=== PATIENT | male | born 1990 | race Hispanic/Latino ===

== ENCOUNTER 2025-02-07 12:40 | Emergency (ER) | payer SELFPAY ==
[2025-02-07] MEDS ORDERED: ONDANSETRON 4 MG/2 ML VIAL ONE (13:00)
[2025-02-07] MEDS ORDERED: PANTOPRAZOLE 40 MG INJ ONE (13:00)
[2025-02-07] MEDS ORDERED: NA CHLORIDE 0.9% 250 ML ONE (13:01)
[2025-02-07] MEDS ORDERED: NA CHLORIDE 0.9% 1,000 ML ONE (13:01)
[2025-02-07] MEDS ORDERED: FENTANYL CITR 100 MCG/2 ML ONE ×2 (13:26→15:21)
[2025-02-07 13:34] LABS: Absolute Eosinophils 0.1 K/uL (0-0.5); Absolute Lymphocytes (CBC) 0.6 K/uL (0.7-4.9); Absolute Monocytes 0.6 K/uL (0.1-1.3); Absolute Neutrophil 5.8 K/uL (1.8-8.0); Basophils % 0.2 % (0-1.3); Eosinophils % 1.3 % (0-4.4); Hematocrit 28.2 % (39.6-49.0); Hemoglobin 9.7 g/dL (13.6-17.9); Lymphocytes % 8.6 % (15.3-44.8); MCHC 34.3 g/dL (32.0-36.0); MCV 78.7 fL (80-100); Monocytes % 8.1 % (3.3-12.3); Neutrophils % 81.8 % (41.7-73.7); Platelets 181 thou/uL (152-406); RBC Red Blood Cell Count 3.59 M/uL (4.33-5.43); Red Cell Distribution Width 20.8 % (12.1-15.2)
[2025-02-07 13:45] LABS: Albumin 3.1 g/dL (3.4-5.0); Anion Gap 11.2 mEq/L (5.0-15.0); Bilirubin Total 0.2 mg/dL (0.2-1.0); Globulin 3.1 g/dL (2.3-3.5); Potassium 4.2 mEq/L (3.5-5.1); Protein, Total 6.2 g/dL (6.4-8.2)
[2025-02-07 15:17] LABS: Blood Morphology Comment NOT SEEN (NOT SEEN); Platelet Estimate ADEQ; White Blood Cell Scan OK (OK)
[2025-02-07] MEDS ORDERED: INSULIN REGULAR (HUMAN) 100 UNIT/ML ONE (15:22)
[2025-02-07 15:58] LABS: Hematocrit 27.6 % (39.6-49.0); Hemoglobin 9.6 g/dL (13.6-17.9)
--- NOTE | 2025-02-07 16:11 | RAD REPORT ---
EXAMINATION: CT Abdomen Pelvis Wo Contrast CLINICAL INDICATION: Male, 35 years old. ABD PAIN TECHNIQUE: CT abdomen and pelvis was performed, without IV contrast, as per department protocol. Axia l, sagittal and coronal reconstructions were obtained. One or more of the following dose reduction techniques were used: Automated exposure control, adjustment of the mA and kV according to the patien t size, and iterative reconstruction. Unless otherwise specified, incidental findings do not require dedicated imaging follow-up. COMPARISON: No prior exam. FINDINGS: The lack of intravenous contrast limits the sensitivity of this exam for evaluation of solid visceral organs, vascular structures, and retroperitoneum. Motion artifact also limits evaluation. LOWER CHEST: The visualized lung bases are clear. LIVER: Normal in size and contour. No focal lesion. BILIARY SYSTEM: Status post cholecystectomy. SPLEEN: Normal size. No focal lesion. PANCREAS: No mass, ductal dilation, or evelyn-pancreatic fluid. ADRENALS: Normal; no mass. KIDNEYS AND URETERS: Normal size and contour. No hydronephrosis. URINARY BLADDER: Normal contour. GASTROINTESTINAL TRACT: No evidence of bowel obstruction, significant free fluid, free air or abscess . APPENDIX: Normal appendix. LYMPH NODES: No lymphadenopathy. MUSCULOSKELETAL: No acute or suspicious osseous abnormality. ADDITIONAL FINDINGS: IVC filter in place. IMPRESSION: No acute or concerning abnormalities in the abdomen or pelvis, with evaluation limited by motion and lack of IV contrast.
--- NOTE | 2025-02-07 16:24 | EDPHYS ---
Physician Documentation [facility] Name: Seth Cruz Age: 35 yrs Sex: Male : 1990 Arrival Date: 02/07/2025 Time: 12:40 Bed 13 Private MD: ED Physician Dmitry Sims HPI: 02/07 13:47 This 35 yrs old Male presents to ER via EMS with complaints of Abdominal Pain, kb Nausea/Vomiting. 13:47 Pt is a 35 year old male who presents for upper abd pain and hematemesis that started kb this morning. Reports he has had 4-5 episodes of vomiting bright red blood. Reports history of GERD and ulcers that have had to be clipped and cauterized in the past. . Historical: - Allergies: 12:45 Morphine; db 12:45 NSAIDS; db - PMHx: 17:24 Diabetes mellitus; db - Immunization history:: Adult Immunizations unknown. - Infectious Disease History:: Denies. - Social history:: Smoking status: Patient denies any tobacco usage or history of. Patient uses alcohol. ROS: 13:47 Constitutional: As per HPI kb Exam: 13:47 Constitutional: This is a well developed, well nourished patient who is awake, alert, kb and in no acute distress. Head/Face: Normocephalic, atraumatic. ENT: Moist Mucous membranes Cardiovascular: Regular rate Respiratory: Respirations even and unlabored. No increased work of breathing. Talking in full sentences Skin: Warm, dry with normal turgor. Normal color. MS/ Extremity: Pulses equal, no cyanosis. Neurovascular intact. Full, normal range of motion. Neuro: Awake and alert, GCS 15, oriented to person, place, time, and situation. 13:47 Abdomen/GI: Inspection: abdomen appears normal, Bowel sounds: normal, Palpation: soft, in all quadrants, moderate abdominal tenderness, in the epigastric area and left upper quadrant, Vital Signs: 12:45 BP 173 / 87; Pulse 120; Resp 18; Temp 98.8; Pulse Ox 99% ; Weight 87.54 kg; Height 6 db ft. 1 in. ; 13:00 BP 140 / 73; Pulse 110; Resp 18; Pulse Ox 100% on R/A; db 15:00 BP 146 / 78; Pulse 99; Resp 18; Pulse Ox 100% ; db 15:30 BP 151 / 88; Pulse 100; Resp 22; Pulse Ox 99% on R/A; db 16:00 BP 132 / 74; Pulse 101; Resp 16; Pulse Ox 98% on R/A; db 17:00 BP 137 / 83; Pulse 98; Resp 18; Pulse Ox 99% ; db 12:45 Body Mass Index 25.46 (87.54 kg, 185.42 cm) db MDM: 12:48 Medical Screening Exam initiated kb 13:49 Data reviewed: vital signs, nurses notes. Historians other than the Patient: EMS: [facility]. 16:20 Differential diagnosis: gastritis, gastroesophageal reflux disease, GI Bleed, Peptic kb Ulcer Disease. Consideration of Admission/Observation Escalation of care including admission/observation considered. admission considered, but BUN low, no drop on serial Hgb, No vomiting since arrival. Discussed with Dr Sims who recommends protonix po and follow up with gi outpatient. Management of patient was discussed with the following: Dr Sims recommends outpatient treatment and follow up. 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 ED course: Pt given strict return precautions. 02/07 12:48 Order name: CBC with Diff; Complete Time: 15:17 kb 02/07 12:48 Order name: CMP; Complete Time: 13:49 kb 02/07 12:48 Order name: Lipase; Complete Time: 13:49 kb 02/07 12:48 Order name: Type And Screen; Complete Time: 14:11 kb 02/07 13:41 Order name: CBC Smear Scan; Complete Time: 15:17 EDMS 02/07 15:17 Order name: Hemoglobin; Complete Time: 16:05 kb 02/07 15:17 Order name: Hematocrit; Complete Time: 16:05 kb 02/07 16:45 Order name: ABO/RH no charge; Complete Time: 16:49 EDMS 02/07 14:17 Order name: Abdomen ; Complete Time: 16:17 EDMS 02/07 12:48 Order name: IV Saline Lock; Complete Time: 13:34 kb 05/03 12:48 Order name: Labs collected and sent; Complete Time: 13:34 kb 02/07 14:47 Order name: Vital Signs; Complete Time: 16:21 kb Administered Medications: 13:10 Drug: Ondansetron IVP 4 mg IVP once; over 2 minutes Route: IVP; Site: Other; db 17:21 Follow up: Response: No adverse reaction db 13:10 Drug: NS 0.9% IV 1000 ml IV at 1 bolus Per protocol; to be given as a bolus over 60 db minutes Route: IV; Rate: 1 bolus; Site: Other; 17:21 Follow up: Response: No adverse reaction; IV Status: Completed infusion; IV Intake: db 1000ml 13:10 Drug: Pantoprazole IVP 80 mg IVP once {Note: RIGHT FOOT.} Route: IVP; Site: Other; db 17:21 Follow up: Response: No adverse reaction db 13:10 Drug: Pantoprazole IV 8 mg/hr IV at 25 ml/hr continuous; (Standard dilution is 80 mg in db 250 mL NS) Route: IV; Rate: 25 ml/hr; Site: Other; 17:21 Follow up: Response: No adverse reaction; IV Status: Completed infusion db 13:25 Drug: fentaNYL (PF) IVP 50 mcg IVP once Route: IVP; Site: Other; db 16:21 Follow up: Response: No adverse reaction; Pain is decreased db 15:25 Drug: fentaNYL (PF) IVP 50 mcg IVP once Route: IVP; Site: Other; db 16:21 Follow up: Response: No adverse reaction; Pain is decreased db 15:25 Drug: Insulin Regular Human IVP 10 units IVP once {Co-Signature: [email or web address] (Lilo Bray db RN).} Route: IVP; Site: Other; 17:21 Follow up: Response: No adverse reaction db Disposition Summary: 02/07/25 16:23 Discharge Ordered Notes: Location: Home kb Condition: Stable kb Diagnosis - Upper abdominal pain, unspecified kb - Anemia, unspecified kb Followup: kb - With: Emergency Department - When: As needed - Reason: Worsening of condition Followup: kb - With: Private Physician - When: 2 - 3 days - Reason: Recheck today's complaints, Continuance of care, Re-evaluation by your physician Discharge Instructions: - Discharge Summary Sheet kb - Hematemesis kb - Abdominal Pain, Adult, [id number] kb Forms: - Medication Reconciliation Form kb - Antibiotic Education kb - Prescription Opioid Use kb - Patient Portal Instructions kb - Leadership Thank You Letter kb Prescriptions: - ondansetron 4 mg Oral Tablet,disintegrating - take 1 tablet ORAL route every 6 hours As needed as needed for nausea and kb vomiting; 12 tablet; Refills: 0, Product Selection Permitted - Protonix 40 mg Oral Tablet - take 1 tablet ORAL route once daily; 30 tablet; Refills: 0, Product Selection kb Permitted Addendum: 02/08/2025 22:23 Co-signature as Attending Physician, Dmitry Sims MD I agree with the assessment and c garcia plan of care. Signatures: Dispatcher [employer] EDRadha Meraz, [employer]-C ENVIRONMENTAL ASSISTANT-Dmitry Moore MD MD cha Benton, Danielle, RN RN db Lilo Bray RN [email or web address] Corrections: (The following items were deleted from the chart) 02/07 12:49 12:49 Abdomen Pelvis W Con+CT.RAD.BRZ ordered. EDNH EDNH
--- NOTE | 2025-02-07 16:24 | ER ---
Nurse's Notes [facility] Name: Seth Cruz Age: 35 yrs Sex: Male : 1990 Arrival Date: 02/07/2025 Time: 12:40 Bed 13 Private MD: Diagnosis: Upper abdominal pain, unspecified;Anemia, unspecified Presentation: 02/07 12:45 Chief complaint: EMS states: VOMITING BLOOD STARTED THIS AM. BGL 440. Coronavirus db screen: Client denies travel out of the [place] in the last 14 days. At this time, the client does not indicate any symptoms associated with coronavirus-19. Ebola Screen: Patient negative for fever greater than or equal to 101.5 degrees Fahrenheit, and additional compatible Ebola Virus Disease symptoms Patient denies exposure to infectious person. Patient denies travel to an Ebola-affected area in the 21 days before illness onset. No symptoms or risks identified at this time. Initial Sepsis Screen: Does the patient meet any 2 criteria? No. Patient's initial sepsis screen is negative. Does the patient have a suspected source of infection? No. Patient's initial sepsis screen is negative. Risk Assessment: Do you want to hurt yourself or someone else? Patient reports no desire to harm self or others. Onset of symptoms was February 07, 2025. Care prior to arrival: Medication(s) given: Normal saline infusion, zofran 4 mg, FENTANYL 100 MCG IV initiated. 20 GA, in the right FOOT Glucose check: 440. 12:45 Method Of Arrival: EMS: [facility] db 12:45 Acuity: JERRY 3 db Triage Assessment: 12:45 General: Appears in no apparent distress. comfortable, Behavior is calm, cooperative. db Pain: Complains of pain in abdomen. Neuro: Level of Consciousness is awake, alert, obeys commands, Oriented to person, place, time, situation. Respiratory: Airway is patent Respiratory effort is even, unlabored, Respiratory pattern is regular, symmetrical. Historical: - Allergies: 12:45 Morphine; db 12:45 NSAIDS; db - PMHx: 17:24 Diabetes mellitus; db - Immunization history:: Adult Immunizations unknown. - Infectious Disease History:: Denies. - Social history:: Smoking status: Patient denies any tobacco usage or history of. Patient uses alcohol. Screenin:22 [facility] ED Fall Risk Assessment (Adult) History of falling in the last 3 months, db including since admission No falls in past 3 months (0 pts) Confusion or Disorientation No (0 pts) Intoxicated or Sedated No (0 pts) Impaired Gait No (0 pts) Mobility Assist Device Used No (0 pt) Altered Elimination No (0 pt) Score/Fall Risk Level 0 - 2 = Low Risk Oriented to surroundings, Maintained a safe environment. Abuse screen: Denies threats or abuse. Denies injuries from another. Nutritional screening: No deficits noted. Tuberculosis screening: No symptoms or risk factors identified. Assessment: 16:21 Reassessment: Patient appears in no apparent distress at this time. Patient and/or db family updated on plan of care and expected duration. Pain level reassessed. Patient is alert, oriented x 3, equal unlabored respirations, skin warm/dry/pink. Reassessment: Patient states feeling better. Patient states symptoms have improved. General: Appears in no apparent distress. comfortable, Behavior is calm, cooperative. Neuro: Level of Consciousness is awake, alert, obeys commands, Oriented to person, place, time, situation. 17:22 Reassessment: Patient appears in no apparent distress at this time. Patient and/or db family updated on plan of care and expected duration. Pain level reassessed. Patient is alert, oriented x 3, equal unlabored respirations, skin warm/dry/pink. Vital Signs: 12:45 BP 173 / 87; Pulse 120; Resp 18; Temp 98.8; Pulse Ox 99% ; Weight 87.54 kg; Height 6 db ft. 1 in. ; 13:00 BP 140 / 73; Pulse 110; Resp 18; Pulse Ox 100% on R/A; db 15:00 BP 146 / 78; Pulse 99; Resp 18; Pulse Ox 100% ; db 15:30 BP 151 / 88; Pulse 100; Resp 22; Pulse Ox 99% on R/A; db 16:00 BP 132 / 74; Pulse 101; Resp 16; Pulse Ox 98% on R/A; db 17:00 BP 137 / 83; Pulse 98; Resp 18; Pulse Ox 99% ; db 12:45 Body Mass Index 25.46 (87.54 kg, 185.42 cm) db ED Course: 12:45 Arm band placed on Patient placed in an exam room. db 12:48 Patient arrived in ED. kb 12:48 [facility]C [facility] kb 12:48 Dmitry Sims MD is Attending Physician. kb 12:48 Justa Pedraza RN is Primary Nurse. db 12:51 Triage completed. db 13:05 Maintain EMS IV. Dressing intact. Good blood return noted. Site clean \T\ dry. Gauge \T\ db site: 20 G RIGHT FOOT. Flushed with 10 mL NS. 13:10 Initial lab(s) drawn, by me, sent to lab. db 14:48 Abdomen In Process Unspecified. EDMS 17:22 Patient has correct armband on for positive identification. Bed in low position. Call db light in reach. Side rails up X 1. Provided Education on: DISCHARGE, PRESCRIPTIONS AND FOLLOWUP. Client placed on continuous cardiac and pulse oximetry monitoring. NIBP monitoring applied. ekg monitor tech on. Pulse ox on. NIBP on. Warm blanket given. Pillow given. 17:22 No provider procedures requiring assistance completed. IV discontinued, intact, db bleeding controlled, No redness/swelling at site. Administered Medications: 13:10 Drug: Ondansetron IVP 4 mg IVP once; over 2 minutes Route: IVP; Site: Other; db 17:21 Follow up: Response: No adverse reaction db 13:10 Drug: NS 0.9% IV 1000 ml IV at 1 bolus Per protocol; to be given as a bolus over 60 db minutes Route: IV; Rate: 1 bolus; Site: Other; 17:21 Follow up: Response: No adverse reaction; IV Status: Completed infusion; IV Intake: db 1000ml 13:10 Drug: Pantoprazole IVP 80 mg IVP once {Note: RIGHT FOOT.} Route: IVP; Site: Other; db 17:21 Follow up: Response: No adverse reaction db 13:10 Drug: Pantoprazole IV 8 mg/hr IV at 25 ml/hr continuous; (Standard dilution is 80 mg in db 250 mL NS) Route: IV; Rate: 25 ml/hr; Site: Other; 17:21 Follow up: Response: No adverse reaction; IV Status: Completed infusion db 13:25 Drug: fentaNYL (PF) IVP 50 mcg IVP once Route: IVP; Site: Other; db 16:21 Follow up: Response: No adverse reaction; Pain is decreased db 15:25 Drug: fentaNYL (PF) IVP 50 mcg IVP once Route: IVP; Site: Other; db 16:21 Follow up: Response: No adverse reaction; Pain is decreased db 15:25 Drug: Insulin Regular Human IVP 10 units IVP once {Co-Signature: [email or web address] (Lilo Bray RN).} Route: IVP; Site: Other; 17:21 Follow up: Response: No adverse reaction db Medication: 17:22 VIS not applicable for this client. db Intake: 17:21 IV: 1000ml; Total: 1000ml. db Outcome: 16:23 Discharge ordered by MD. gorman 17:22 Discharged to home ambulatory, with friend, db 17:22 Condition: stable 17:22 Discharge instructions given to patient, Instructed on discharge instructions, follow up and referral plans. Prescriptions given X 2, 17:24 Patient left the ED. db Signatures: Dispatcher [employer] EDRadha Meraz, Justa Ross RN RN Lilo Benitez RN [email or web address]
[2025-02-07 18:04] VITALS: TEMP 98.8
[2025-02-07 18:12] VITALS: BP 137/83; O2SAT 99
== END 2025-02-07 17:24 | disposition home or self-care (01) ==
LOC: ER 12:40
DX: R10.13 Epigastric pain (principal); D64.9 Anemia, unspecified; E11.9 Type 2 diabetes mellitus without complications
CPT/HCPCS: 36415; 74176; 80053; 83690; 85014; 85018; 85025; 86850; 86900; 86901; 96365; 96366; 96375; 99285; J1815; J2405; J2470; J3010; J7030; J7050